=== PATIENT | male | born 1960 | race African-American/Black ===

== ENCOUNTER 2017-08-09 08:27 | Emergency (ER) | payer MEDICARE, MEDICAID | END 2017-08-09 09:54 | disposition home or self-care (01) | LOC: D.ER 08:27 | DX: S39.93XA Unspecified injury of pelvis, initial encounter (principal); W01.0XXA Fall on same level from slipping, tripping and stumbling without subsequent striking against object, initial encounter; Y93.89 Activity, other specified; Y92.129 Unspecified place in nursing home as the place of occurrence of the external cause; S89.91XA Unspecified injury of right lower leg, initial encounter; S49.91XA Unspecified injury of right shoulder and upper arm, initial encounter ==